=== PATIENT | male | born 1965 ===

== ENCOUNTER 2020-05-03 11:11 | Emergency (ER) | payer BC ==
[~2020-05-03] VITALS: Ht 160 cm; Wt 70.3 kg
[2020-05-03] MEDS ORDERED: Aspir 8181 MG PO (11:28)
[2020-05-03] MEDS ORDERED: LISI20 PO (11:28)
[2020-05-03] MEDS ORDERED: Percocet 5-3251 EACH PO (15:21)
[2020-05-03 15:49] LABS: Glucose, Body Fluid 21 mg/dL; Protein, Body Fluid 4.5 g/dL; WBC Count, Synovial Fluid 9422 /mm3 (0-180)
[2020-05-03 16:22] LABS: Body Fluid Crystals NEG (NEGATIVE)
[2020-05-03 16:54] LABS: RBC Count, Synovial Fluid 911 /mm3 (0-0)
[2020-05-03 16:57] LABS: Appearance, Synovial Fluid Hazy (Clear); Color, Synovial Fluid Yellow (None-P Yel); Monocytes/Macrophages, Synovia 3 % (0-65); Neutrophils, Synovial Fluid 97 % (0-24)
== END 2020-05-03 15:32 | disposition home or self-care (01) ==
LOC: ER 11:11
PROVIDERS: Physician Assistant
DX: M25.461 Effusion, right knee (principal); Z88.2 Allergy status to sulfonamides; Z88.5 Allergy status to narcotic agent; Z79.82 Long term (current) use of aspirin; Z79.899 Other long term (current) drug therapy
CPT/HCPCS: 20610; 73564; 82945; 84157; 87070; 87075; 87205; 89051; 89060; 99283-25; A9270; J3301

== ENCOUNTER 2022-02-24 13:03 | Day surgery (SDC) | payer BC ==
[~2022-02-24] VITALS: Ht 160 cm; Wt 77.3 kg
[~2022-02-24 13:03] MED LIST: Aspir 8181 MG PO; LISI20 PO; Percocet 5-3251 EACH PO
[2022-02-24] MEDS ORDERED: DICL75ER PO (13:34)
[2022-02-24] MEDS ORDERED: DUPIXENT P300 MG/2 M SC (13:36)
== END 2022-02-24 14:53 | disposition home or self-care (01) ==
LOC: ORSCSDS 13:03
PROVIDERS: Surgery
PROC: 0DBN8ZX Excision of Sigmoid Colon, Via Natural or Artificial Opening Endoscopic, Diagnostic (ICD-10-PCS; principal; 2022-02-24 14:30)
DX: R19.5 Other fecal abnormalities (principal); D12.5 Benign neoplasm of sigmoid colon; I10 Essential (primary) hypertension; K64.4 Residual hemorrhoidal skin tags; Z79.899 Other long term (current) drug therapy
CPT/HCPCS: 88305; J0330; J0461; J2405; J2704; J7120; Q9968